=== PATIENT | male | born 1990 | race Caucasian/White ===

== ENCOUNTER 2020-03-10 14:38 | Emergency (ER) | payer SELFPAY ==
[~2020-03-10] VITALS: Ht 185.4 cm; Wt 83.9 kg
--- NOTE | 2020-03-10 14:53 | NUR ---
ED Nurse Note: Pt walked in [facility] home d/t deep lac on bridge of nose. Pt report swimming and accidentally running into the wall of the pool. Last tetanus shot 3 years ago. Respirations even and unlabored on room air. Vitals stable as documented.
[2020-03-10 14:54] VITALS: BP 131/69
[2020-03-10] MEDS ORDERED: Tetanus/Diptheria/Pertussis IM ONE (15:00)
[2020-03-10] MEDS ORDERED: Bupivacaine 0.5% Inj 30 ml vial INJ ONE (15:00)
--- NOTE | 2020-03-10 15:18 | NUR ---
ED Nurse Note: ED MD @ bedside
--- NOTE | 2020-03-10 15:37 | NUR ---
ED Nurse Note: Per ED MD, hold TDAP d/t patient having injection 3 years ago
[2020-03-10] MEDS ORDERED: Neosporin Oint Ud Pkt TOPIC ONE ×2 (15:39→16:00)
[2020-03-10] MEDS ORDERED: BACITRACIN ZIN1 EACH TOPIC (15:42)
--- NOTE | 2020-03-10 15:55 | Emergency Room Report ---
History of Present Illness General Chief Complaint: Laceration Source: Patient Present Illness HPI Patient is a 29-year-old male who presented after increased pain to the nasal bridge. Patient had injury just prior to arrival. Patient reports up-to-date tetanus vaccine. He had been swimming in a pool and struck his nose on the edge of the pool. Denies any loss of consciousness. Denies any visual changes. Denies any headache. Reports being able to breathe normally. Patient denies any fever. Allergies: Coded Allergies: No Known Allergies (Unverified , 03/10/20) COVID-19 Screening Contact w/high risk pt: No Recent Travel to affected area: No Experienced COVID-19 symptoms?: No Patient History Past Medical History: see triage record Reviewed Nursing Documentation: PMH: Agreed; PSxH: Agreed Nursing Documentation-PMH Past Medical History: No Stated History Review of Systems All Other Systems: negative except mentioned in HPI Physical Exam Vital Signs Date Time Temp Pulse Resp B/P (MAP) Pulse Ox O2 Delivery O2 Flow Rate FiO2 03/10/20 14:44 98.2 71 20 133/64 (87) 98 Room Air Sp02 EP Interpretation: reviewed, normal General Appearance: normal inspection, well appearing, no apparent distress, alert, GCS 15 Head: atraumatic ENT: normal ENT inspection, hearing grossly normal, normal voice, other - Laceration to the nasal bridge Neck: normal inspection, full range of motion, supple, no bony tend Respiratory: normal inspection, lungs clear, normal breath sounds, no respiratory distress, no retraction, no wheezing Cardiovascular #1: regular rate, rhythm, no edema Gastrointestinal: normal inspection, normal bowel sounds, non tender, soft, no guarding, no hernia Genitourinary: no CVA tenderness Musculoskeletal: normal inspection, back normal, normal range of motion Neurologic: alert, motor strength/tone normal, project estimator III-XII nml as tested, oriented x3, responsive, speech normal, normal inspection, other - steady gait Psychiatric: normal inspection, judgement/insight normal, mood/affect normal Skin: no rash, rash, laceration - nasal bridge Procedures Laceration/Wound Repair Laceration/Wound Repair : Consent: Verbal Wound Location: face Wound's Depth, Shape: superficial Wound Length (cm): 1 Wound Explored: clean Irrigated w/ Saline (ccs): 10 Betadine Prep?: Yes Anesthesia: 0.5% Sensorcaine Volume Anesthetic (ccs): 2 Wound Debrided: None Wound Repaired With: sutures Suture Size/Type: 6:0 Number of Sutures: 10 Deep Layer Suture Size/Type: 6:0, 5:0 Number Deep Layer Sutures: 2 Sterile Dressing Applied?: Yes Patient Tolerated: Well Complications: None Medical Decision Making Diagnostic Impression: Primary Impression: Facial laceration ER Course Patient is a 29-year-old male presented after facial injury. Differential diagnosis include was not limited to laceration, facial fracture, head injury among others. Patient has a benign exam and does not appear to require any imaging or laboratory testing at this time. Patient does not appear to have any evidence of a displaced fracture to the nasal bridge. Laceration was irrigated. Patient's tetanus vaccine was noted to be up-to-date. Wound appears to be clean. Patient's laceration was repaired with interrupted sutures. Patient tolerated this well.Patient will be discharged home. He was advised to have sutures removed in 5 to 7 days. He was advised wound care and to return if worse.This medical record is generated with [employer] street sweeper operator software. There may be some street sweeper operator discrepancies related to use of this software Last Vital Signs Date Time Temp Pulse Resp B/P (MAP) Pulse Ox O2 Delivery O2 Flow Rate FiO2 03/10/20 14:54 98.2 68 20 131/69 98 Room Air Status: improved Disposition: HOME, SELF-CARE Condition: Stable Scripts Bacitracin Zinc* (BACITRACIN ZINC*) 1 Each Packet 1 APPLIC TOPIC THREE TIMES A DAY, #30 PACKET Prov: Sean Perez MD 03/10/20 Patient Instructions: Facial Laceration Additional Instructions: Follow up for suture removal in 5-7 days. Return if any problems. DO NOT blow your nose. Sean Perez MD Mar 10, 2020 15:55
[2020-03-10 15:58] VITALS: BP 127/71
--- NOTE | 2020-03-10 15:58 | NUR ---
ER DISCHARGE NOTE: Nose is bandaged. Patient is cleared to be discharged per ERMD, pt is aox4, on room air, with stable vital signs. pt was given dc instructions, pt was able to verbalize understanding, pt id band removed. pt is able to ambulate with steady gait. pt took all belongings.
== END 2020-03-10 15:58 | disposition home or self-care (01) ==
LOC: EMR 15:20
DX: S01.21XA Laceration without foreign body of nose, initial encounter (principal); W22.8XXA Striking against or struck by other objects, initial encounter; Y93.11 Activity, swimming; Y92.9 Unspecified place or not applicable; Z23 Encounter for immunization
CPT/HCPCS: 12011; 90471; 90715; 99283; J3490

== ENCOUNTER 2020-03-12 10:12 | Emergency (ER) | payer OTHER ==
[~2020-03-12] VITALS: Ht 185.4 cm; Wt 83.9 kg
[~2020-03-12 10:12] MED LIST: BACITRACIN ZIN1 EACH TOPIC
[2020-03-12 10:30] VITALS: BP 114/62
--- NOTE | 2020-03-12 10:30 | NUR ---
ED Nurse Note: Patient walked into ED c/o bilateral eye pressure and blurred vision x 1 day. Patient states he was swimming 3 days ago and hit the bridge of his nose full-force into a pool wall. Patient had sutures to the wound on his nose 2 days ago. Patient has bilateral molly-orbital swelling and bruising. Patient AxO x 4.
--- NOTE | 2020-03-12 10:35 | NUR ---
ED Nurse Note: Dr. Ashley at bedside.
[2020-03-12 10:45] VITALS: BP 114/62
--- NOTE | 2020-03-12 10:45 | NUR ---
ER DISCHARGE NOTE: Patient is cleared to be discharged per Dr. Ashley, pt is aox4, on room air, with stable vital signs. Patient verbalized understanding of Rx DC instructions. Patient walks with steady gait, walked out of the ED with all belongings.
--- NOTE | 2020-03-12 10:53 | Emergency Room Report ---
History of Present Illness General Chief Complaint: Eye Problems Source: Patient Present Illness HPI 29-year-old male presents ED for evaluation. States that on Wednesday he hit his face against the wall while swimming in the pool. Required stitches and was seen at an urgent care for stitches. States that since then he has been having some swelling around his eyes some intermittent blurry vision. Denies pain. Denies nausea or vomiting. No other aggravating relieving factors. Denies any other associated symptoms Allergies: Coded Allergies: No Known Allergies (Unverified , 03/10/20) COVID-19 Screening Contact w/high risk pt: No Recent Travel to affected area: No Experienced COVID-19 symptoms?: No Patient History Past Medical History: none Past Surgical History: none Pertinent Family History: none Social History: Denies: smoking, alcohol use, drug use Immunizations: UTD Reviewed Nursing Documentation: PMH: Agreed; PSxH: Agreed Nursing Documentation-PMH Past Medical History: No History, Except For Review of Systems All Other Systems: negative except mentioned in HPI Physical Exam Vital Signs Date Time Temp Pulse Resp B/P (MAP) Pulse Ox O2 Delivery O2 Flow Rate FiO2 03/12/20 10:22 98.1 60 17 114/62 (79) 97 Sp02 EP Interpretation: reviewed, normal General Appearance: no apparent distress, alert, GCS 15, non-toxic Head: normocephalic, other - swelling periorbital area bilateral eyes Eyes: bilateral eye normal inspection, bilateral eye PERRL, bilateral eye EOMI ENT: hearing grossly normal, normal pharynx, no angioedema, normal voice Neck: full range of motion, no bony tend, supple/symm/no masses Respiratory: normal inspection Cardiovascular #1: normal inspection Gastrointestinal: normal inspection Rectal: deferred Genitourinary: no CVA tenderness Musculoskeletal: normal inspection Neurologic: alert, motor strength/tone normal, oriented x3, sensory intact, responsive, speech normal Psychiatric: normal inspection Skin: no rash Lymphatic: normal inspection Medical Decision Making Diagnostic Impression: Primary Impression: Head injury Qualified Codes: S09.90XA - Unspecified injury of head, initial encounter ER Course Hospital Course 29-year-old male presents status post head injury 2 days ago. Bruising around the eyes. Differential diagnoses include: cspine injury, muscle strain, nasal bone Fx, concussion Clinical course Patient placed on stretcher. After initial history, my physical exam reveals a male in no acute distress. There is a horizontal laceration across the bridge of the nose that has been repaired with sutures. There is some minimal bruising to the periorbital area bilaterally. No tenderness. Extraocular movements intact. Visual acuity intact. There is no ciliary flush or scleral injection. Pupils equally reactive. Remainder of remarkable. Discussed findings with patient. Likely postconcussive syndrome. I do not believe patient would require CT imaging at this time Based on mechanism. Safe for discharge for close outpatient follow- up. Diagnosis - head injury Stable and discharged to home. Followup with PMD. Return to ED if symptoms recur or worsen Last Vital Signs Date Time Temp Pulse Resp B/P (MAP) Pulse Ox O2 Delivery O2 Flow Rate FiO2 03/12/20 10:45 98.1 17 114/62 97 03/12/20 10:22 60 Status: improved Disposition: HOME, SELF-CARE Condition: Stable Referrals: Annelise Donis [facility] Patient Instructions: Post-Concussion Syndrome, [id number] Jian Ashley MD Mar 12, 2020 10:53
== END 2020-03-12 10:45 | disposition home or self-care (01) ==
LOC: EMR 10:40
DX: S01.21XD Laceration without foreign body of nose, subsequent encounter (principal); W22.8XXD Striking against or struck by other objects, subsequent encounter; R22.0 Localized swelling, mass and lump, head
CPT/HCPCS: 99281